=== PATIENT | female | born 1980 | race Caucasian/White ===

== ENCOUNTER 2017-03-05 15:31 | Outpatient (CLI) | payer MEDICAID | END 2017-03-05 15:32 | disposition home or self-care (01) | LOC: RT.S 15:31 | PROVIDERS: ATTEND Nurse Practitioner Family | DX: R07.89 Other chest pain (principal) | CPT/HCPCS: 93005 ==

== ENCOUNTER 2017-03-14 09:40 | Outpatient (CLI) | payer MEDICAID | END 2017-03-14 09:41 | disposition home or self-care (01) | DX: R07.89 Other chest pain (principal); Z83.49 Family history of other endocrine, nutritional and metabolic diseases; Z86.2 Personal history of diseases of the blood and blood-forming organs and certain disorders involving the immune mechanism ==

== ENCOUNTER 2017-04-26 09:51 | Outpatient (CLI) | payer MEDICAID ==
[2017-04-26 11:43] LABS: THYROID STIMULATING HORMONE 1.14 uIU/mL (0.34-5.60)
== END 2017-04-26 09:52 | disposition home or self-care (01) ==
LOC: LAB 09:51
PROVIDERS: ATTEND Obstetrics & Gynecology
DX: R10.9 Unspecified abdominal pain (principal)
CPT/HCPCS: 36415; 84439; 84443; 84481; 84703

== ENCOUNTER 2017-05-14 12:51 | Outpatient (CLI) | payer MEDICAID ==
--- NOTE | 2017-05-15 10:48 | Ultrasound Report ---
REVISED: THIS REPORT WAS ORIGINALLY SIGNED ON 05/15/2017 @ 2200. NO CHANGES MADE TO REPORT. ORIGINAL [facility] REQUISITION WAS REPRINTED ON 05/16/2017. TRANSABDOMINAL AND TRANSVAGINAL ULTRASOUND: 05/14/2017 CLINICAL HISTORY: Patient has abdominal pain. TECHNIQUE: Transabdominal pelvic ultrasound performed for global evaluation. Transvaginal pelvic ultrasound performed for detailed evaluation. Real-time scanning performed and static images obtained. FINDINGS: Uterus measures 18.5 x 3 x 4 cm. Within the central intrauterine cavity is noted an IUD. The position of the IUD appears normal on the present ultrasound exam including transvaginal ultrasound exam. Endometrial echo complex measures 4.6 mm. This is normal. A small amount of fluid is seen in the endocervical canal. Right ovary measures 3 x 2.6 x 3.9 cm. Within the right ovary is a benign cyst measuring 1.4 x 1.1 x 1.5 cm. Left ovary measures 1.8 x 1.7 x 1 cm. IMPRESSION: 1. NORMAL UTERUS. T-SHAPED IUD IS NOTED WITHIN THE CENTRAL INTRAUTERINE CAVITY IN NORMAL POSITION. 2. OVARIES APPEAR MILDLY ATROPHIC. RIGHT OVARY CONTAINS A SMALL PHYSIOLOGICAL FOLLICULAR CYST WITHIN IT MEASURING 1.4 X 1.1 X 1.5 CM. 3. NO SIGNIFICANT CHANGE IS NOTED ON PRESENT ULTRASOUND COMPARED TO PRECEDING EXAM DATED 05/12/2016. JOB #: [id number] EXT JOB #: [id number] [facility]
== END 2017-05-14 12:52 | disposition home or self-care (01) ==
LOC: DI 12:51
PROVIDERS: ATTEND Obstetrics & Gynecology
DX: N83.01 Follicular cyst of right ovary (principal); Z97.5 Presence of (intrauterine) contraceptive device; N83.312 Acquired atrophy of left ovary; N83.311 Acquired atrophy of right ovary
CPT/HCPCS: 76830; 76856

== ENCOUNTER 2019-04-17 18:44 | Outpatient (CLI) | payer MEDICAID ==
--- NOTE | 2019-04-20 04:54 | XRAY Report ---
Reason: NUMBNESS AND TINGLING IN RIGHT ARM,BACK PAIN,UPPER Procedure Date: 04/17/2019 Accession Number: [id number] / [id number] Procedure: XR - Thoracic Spine 2 View CPT Code: FULL RESULT: EXAM: CERVICAL AND THORACIC SPINE RADIOGRAPHY EXAM DATE: 04/17/2019 07:13 PM. CLINICAL HISTORY: Numbness and tingling in right arm, upper back pain. COMPARISONS: THORACIC SPINE 2 VIEW 04/17/2019 6:48 PM. TECHNIQUE: 3 views each of the cervical and thoracic spine. FINDINGS: Alignment: No acute malalignment. Mild reversal of the normal cervical lordosis may be due to muscle spasm and/or positioning factors. Bones: The cervical vertebral bodies and posterior elements are well-visualized from the skull base through C7-T1. No fractures or bone lesions. Disks: Normal. Disk heights are maintained. Facets: No degenerative disease. Soft Tissues: Normal. No prevertebral soft tissue swelling. The visualized lung apices are clear. IMPRESSION: Negative cervical and thoracic spine radiography. [facility]
--- NOTE | 2019-04-20 04:54 | XRAY Report ---
Reason: NUMBNESS AND TINGLING IN RIGHT ARM,BACK PAIN,UPPER Procedure Date: 04/17/2019 Accession Number: [id number] / [id number] Procedure: XR - Cervical Spine 2 View CPT Code: FULL RESULT: EXAM: CERVICAL AND THORACIC SPINE RADIOGRAPHY EXAM DATE: 04/17/2019 07:13 PM. CLINICAL HISTORY: Numbness and tingling in right arm, upper back pain. COMPARISONS: THORACIC SPINE 2 VIEW 04/17/2019 6:48 PM. TECHNIQUE: 3 views each of the cervical and thoracic spine. FINDINGS: Alignment: No acute malalignment. Mild reversal of the normal cervical lordosis may be due to muscle spasm and/or positioning factors. Bones: The cervical vertebral bodies and posterior elements are well-visualized from the skull base through C7-T1. No fractures or bone lesions. Disks: Normal. Disk heights are maintained. Facets: No degenerative disease. Soft Tissues: Normal. No prevertebral soft tissue swelling. The visualized lung apices are clear. IMPRESSION: Negative cervical and thoracic spine radiography. [facility]
== END 2019-04-17 18:45 | disposition home or self-care (01) ==
LOC: DI 18:44
PROVIDERS: ATTEND Nurse Practitioner
DX: M54.89 Other dorsalgia (principal); M79.601 Pain in right arm; R20.2 Paresthesia of skin
CPT/HCPCS: 72040; 72070

== ENCOUNTER 2020-05-20 08:21 | Outpatient (CLI) | payer MEDICAID ==
[2020-05-20 08:40] LABS: BASOPHILS # (AUTO) 0.1 10^3/uL (0.0-0.1); BASOPHILS % (AUTO) 0.7 %; EOSINOPHILS # (AUTO) 0.3 10^3/uL (0.0-0.7); EOSINOPHILS % (AUTO) 3.1 %; HGB - HEMOGLOBIN 14.4 g/dL (12.0-16.0); LYMPHOCYTES # (AUTO) 1.8 10^3/uL (1.5-3.5); LYMPHOCYTES % (AUTO) 20.2 %; MEAN CORPUSCULAR HEMOGLOBIN 31.9 pg (27.0-31.0); MEAN CORPUSCULAR HGB CONC 32.7 g/dL (32.0-36.0); MEAN CORPUSCULAR VOLUME 97.6 fL (81.0-99.0); MEAN PLATELET VOLUME 10.7 fL (7.9-10.8); MONOCYTES # (AUTO) 0.5 10^3/uL (0.0-1.0); MONOCYTES % (AUTO) 5.4 %; NEUTROPHILS # (AUTO) 6.2 10^3/uL (1.5-6.6); NEUTROPHILS % (AUTO) 70.3 %; PLT - PLATELET COUNT 213 10^3/uL (130-450); RED BLOOD COUNT 4.52 10^6/uL (4.20-5.40); RED CELL DISTRIBUTION WIDTH 12.7 % (12.0-15.0); WHITE BLOOD COUNT 8.8 x10^3/uL (4.8-10.8)
[2020-05-20 08:55] LABS: ALBUMIN/GLOBULIN RATIO 1.2 (1.0-2.2); ALKALINE PHOSPHATASE 66 IU/L (42-121); ALT ALANINE AMINOTRANSFERASE 33 IU/L (10-60); AST ASPARTATE AMINOTRANSFERASE 21 IU/L (10-42); BILIRUBIN,TOTAL 0.8 mg/dL (0.2-1.0); BUN - BLOOD UREA NITROGEN 15 mg/dL (6-20); CALCIUM 9.3 mg/dL (8.5-10.3); CARBON DIOXIDE - CO2 27 mmol/L (21-32); CHLORIDE 101 mmol/L (101-111); CHOL/HDL RATIO 4.9 (<4.4); CHOLESTEROL 220 mg/dL; CREATININE 0.9 mg/dL (0.4-1.0); GLUCOSE 126 mg/dL (70-100); HDL CHOLESTEROL 45 mg/dL; LDL CHOLESTEROL,CALCULATED 131 mg/dL; LDL/HDL RATIO 2.9 (<4.4); SODIUM 136 mmol/L (135-145); TOTAL PROTEIN 7.3 g/dL (6.7-8.2); VLDL CHOLESTEROL 44 mg/dL
== END 2020-05-20 08:22 | disposition home or self-care (01) ==
LOC: LAB 08:21
PROVIDERS: ATTEND Registered Nurse
DX: E66.01 Morbid (severe) obesity due to excess calories (principal); Z83.3 Family history of diabetes mellitus
CPT/HCPCS: 36415; 80053; 80061; 83721; 84443; 85025

== ENCOUNTER 2020-05-31 13:24 | Outpatient (CLI) | payer MEDICAID ==
--- NOTE | 2020-05-31 17:58 | XRAY Report ---
PROCEDURE: Ankle 3 View LT INDICATIONS: ANKLE INSTABILITY TECHNIQUE: 3 views of the ankle were acquired. COMPARISON: None FINDINGS: Bones: No fractures or dislocations. Ankle mortise is normally aligned. No suspicious bony lesions . Small plantar and dorsal calcaneal spurs. Soft tissues: No tibiotalar joint effusion. Achilles tendon appears normal. IMPRESSION: 1. Normal ankle joint. 2. Mild plantar and dorsal calcaneal spurring. Reviewed by: Kristin Oscar MD on 05/31/2020 4:57 PM [facility] Approved by: Kristin Oscar MD on 05/31/2020 4:57 PM [facility] Station ID: [id number]
== END 2020-05-31 13:25 | disposition home or self-care (01) ==
LOC: DI 13:24
PROVIDERS: ATTEND Physician Assistant
DX: M77.32 Calcaneal spur, left foot (principal); M77.52 Other enthesopathy of left foot and ankle

== ENCOUNTER 2020-07-06 10:21 | Outpatient (CLI) | payer MEDICAID ==
[2020-07-06 11:07] VITALS: BP 119/78
--- NOTE | 2020-07-06 11:07 | SLEEP CARE CONSULTATION ---
Information from patient questionnaire entered by Debo Monzon. I have reviewed and concur with the information entered by Debo Monzon. This document represents the service I personally performed and the decisions made by me, Halina Matson ARNP. History of Present Illness Service Date and Time: 07/06/2020 1021 Reason for Visit: New patient Chief Complaint: reports: Insomnia (can't stay asleep, waking up in pain (nerve pain)), Unrefreshed sleep, Snoring, Excessive daytime sleepiness, Observed pauses in breathing (not seen by ), Fatigue, Frequent awakenings at night Date of Onset: 20 YEARS Usual bedtime: 2200 Time it takes to fall asleep: 1 hour Snores at night: Yes Observed to quit breathing while asleep: No Sleeps alone due to snoring: No Number of times waking at night: 6-7 Reasons for waking at night: reports: Pain, Other (numbness in arms). 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 Her current complaints are insomnia, unrefreshed sleep, snoring, observed pauses in breathing during sleep, fatigue, excessive daytime s leepiness and frequent night awakenings. She has a history of pre-diabetes with hypertension, asthma and anxiety. She states her falls asleep quickly and sleep hard, so she was unable to get information about pauses in breathing and snoring but she is pretty sure she snores. She states she used to stay up late and then sleep in but since becoming a mother and other life changes she now takes about an hour to go to sleep and then has trouble staying asleep due to frequent awakenings. She wakes up due to her arms being numb and having to turn and because of pain which she believes comes from her back and is more like nerve pain. She is not sure if her tiredness and frequent awakening is due to sleep apnea but due to her unrefreshed sleep and daytime fatigue she is here for evaluation. - Parasomnia Symptoms Ever been unable to move upon waking from sleep: No Walks in sleep: No Talks in sleep: No Ever acted out dreams in sleep: Yes Ever felt weak in the knees when startled or emotional: No Bothered by creepy, crawly, restless sensations in legs: Yes (not every night) Problems with memory or concentration: No Subjective Initial [place] Sleepiness Scale score: 6 (in 2020) Past Medical History Past Medical History: reports: Hypertension, Claustrophobia, Diabetes, Anxiety, Asthma, Other (nerve issues, thinks more of back related). 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 Patient is Single and lives in [place]. Have you smoked in the past 12 months: Yes Cigarettes per day (20/pack): 20 Years of smokin Smoking Pack Years: 25.0 Alcohol use: Yes Alcohol amount and frequency: 2-3 drinks, Saturday, once a week Caffeine use: Yes Caffeine amount and frequency: 1 cup coffee daily in morning Family History Family history of sleep disordered breathing: No Allergies and Home Medications Drug allergies reviewed: Yes (NKDA) Home medication list reviewed: Yes Allergy and home medication list: Metformin gabapentin atorvastatin lisinopril Aller-uday Ibuprofen Pro Air, prn Review of Systems Weight gain over past 5 years: 30 Weight loss over past 5 years: 7 Cardiovascular: reports: high blood pressure, leg or foot swelling. denies: palpitations, chest pain, irregular heart rate or pulse Respiratory: reports: shortness of breath, wheeze, chronic cough Gastrointestinal: reports: heartburn (occasional). denies: difficulty swallowing Neurological: reports: headaches. denies: seizure, head trauma, speech dysfunction, gait or balance problems, fainting or unconsciousness Psychiatric: reports: anxiety, claustrophobia. denies: depression, mood disorder Ear/Nose/Throat: reports: nasal congestion (allergies), sinus problems, dry mouth/throat (in mornings regularly), hoarseness, wisdom teeth removed. denies: nose bleeds, injury to nose, tonsillectomy Endocrine: reports: sluggishness, too hot or cold, unexplained weakness. denies: thyroid disease Musculoskeletal: reports: joint pain, back pain, joint swelling, muscle pain or cramping, mobility problems Immunologic: reports: sneezing, itching, allergies to food or environment Physical Exam Blood Pressure: 119/78 Cuff size: large Heart Rate: 54 O2 Saturation: 98 Height: 5 ft 7 in Weight: 325 lb Body Mass Index: 50.8 BMI Classification: Morbidly Obese Neck circumference: 17.5 (inches) HEENT: No craniofacial malformation Nostrils: patent to airflow Turbinates: swollen Septum: midline Mouth and throat: narrow oropharynx Soft palate: normal Hard palate: normal Uvula: normal Uvula visualization: 25% Mallampati Class III Tongue: enlarged in size with teeth coburn on lateral edges Tonsils: 2+ Chin and jaw: normal size and position Neck: normal w/o lymphadenopathy or thyromegaly Heart: regular rate and rhythm Lungs: clear bilaterally Impression and Plan 1. Suspected Obstructive Sleep Apnea-Hypopnea Syndrome, as suggested by a history of loud and irregular snoring, morning headache, frequent awakening during the night, unrefreshed sleep, and excessive daytime sleepiness. I reviewed with patient that a narrow oropharynx and obesity are common predisposing factors for obstructive sleep apnea-hypopnea syndrome. She has a history of hypertension, prediabetes, asthma and anxiety. I recommend proceeding to polysomnography to confirm the diagnosis and to assess severity. If the patient has significant sleep disordered breathing, a manual CPAP titration study will also be performed to find the optimal treatment pressure. I informed the patient of what the sleep studies involve and after some discussion, obtained agreement to proceed. The pathophysiology of obstructive sleep apnea- hypopnea syndrome was discussed with the patient and health risks of cardiovascular and cerebrovascular disease if not treated. AASM brochure for obstructive sleep apnea-hypopnea syndrome given and reviewed. Risks of drowsy driving discussed in detail and patient advised to avoid long distance driving and to assembler for puller over machine at the first sign of drowsiness. Patient agreed to plan. * Schedule polysomnography +- manual CPAP titration study. * Avoid long distance driving or driving when feeling sleepy. * Avoid alcohol, sedative and muscle relaxant around bedtime. * Attempt to lose weight. * Review instructions provided by trained office staff on how to prepare for the sleep study. * Return for follow-up after sleep study completed. Visit Type: In Office Time Spent with Patient (minutes): 32 Provider Statement: I spent 100% of the Face to Face Visit with the patient with greater than 50% spent counseling the patient and coordination of care.
== END 2020-07-06 10:22 | disposition home or self-care (01) ==
LOC: SC 10:21
PROVIDERS: ATTEND Nurse Practitioner Family
DX: G47.10 Hypersomnia, unspecified (principal); R53.83 Other fatigue; G47.8 Other sleep disorders; R06.83 Snoring; E11.9 Type 2 diabetes mellitus without complications; I10 Essential (primary) hypertension; E66.01 Morbid (severe) obesity due to excess calories; Z68.43 Body mass index [BMI] 50.0-59.9, adult; F17.210 Nicotine dependence, cigarettes, uncomplicated; Z79.84 Long term (current) use of oral hypoglycemic drugs
CPT/HCPCS: 99204; 99212

== ENCOUNTER 2020-08-05 09:30 | Outpatient (CLI) | payer MEDICAID | END 2020-08-05 23:59 | disposition home or self-care (01) | LOC: COV 09:30 | PROVIDERS: ATTEND Family Medicine | DX: R05 Cough (principal); R53.83 Other fatigue; J02.9 Acute pharyngitis, unspecified; R09.81 Nasal congestion; Z20.828 Contact with and (suspected) exposure to other viral communicable diseases ==

== ENCOUNTER 2021-05-10 08:00 | Outpatient (CLI) | payer MEDICAID ==
[2021-05-10 20:53] LABS: BACTERIAL VAGINOSIS DNA NEGATIVE (NEGATIVE); CANDIDA GLABRATA DNA NEGATIVE (NEGATIVE); CANDIDA GROUP DNA POSITIVE (NEGATIVE); CANDIDA KRUSEI DNA NEGATIVE (NEGATIVE); TRICHOMONAS VAGINALIS DNA NEGATIVE (NEGATIVE)
== END 2021-05-10 23:59 | disposition home or self-care (01) ==
LOC: LAB.R 08:00
PROVIDERS: ATTEND Obstetrics & Gynecology
DX: N76.0 Acute vaginitis (principal)
CPT/HCPCS: 87661; 87801

== ENCOUNTER 2021-08-21 08:34 | Outpatient (CLI) | payer MEDICAID ==
[2021-08-21 10:10] LABS: BASOPHILS % (AUTO) 0.3 %; EOSINOPHILS # (AUTO) 0.4 10^3/uL (0.0-0.7); EOSINOPHILS % (AUTO) 3.9 %; HCT - HEMATOCRIT 43.7 % (37.0-47.0); HGB - HEMOGLOBIN 14.1 g/dL (12.0-16.0); LYMPHOCYTES # (AUTO) 1.9 10^3/uL (1.5-3.5); LYMPHOCYTES % (AUTO) 20.8 %; MEAN CORPUSCULAR HEMOGLOBIN 31.6 pg (27.0-31.0); MEAN CORPUSCULAR HGB CONC 32.3 g/dL (32.0-36.0); MEAN PLATELET VOLUME 10.1 fL (7.9-10.8); MONOCYTES # (AUTO) 0.5 10^3/uL (0.0-1.0); MONOCYTES % (AUTO) 5.3 %; NEUTROPHILS # (AUTO) 6.2 10^3/uL (1.5-6.6); NEUTROPHILS % (AUTO) 69.4 %; PLT - PLATELET COUNT 225 10^3/uL (130-450); RED BLOOD COUNT 4.46 10^6/uL (4.20-5.40); RED CELL DISTRIBUTION WIDTH 12.8 % (12.0-15.0); WHITE BLOOD COUNT 8.9 x10^3/uL (4.8-10.8)
[2021-08-21 10:31] LABS: ALBUMIN 4.3 g/dL (3.2-5.5); ALBUMIN/GLOBULIN RATIO 1.2 (1.0-2.2); ALKALINE PHOSPHATASE 73 IU/L (42-121); ALT ALANINE AMINOTRANSFERASE 28 IU/L (10-60); AST ASPARTATE AMINOTRANSFERASE 18 IU/L (10-42); BILIRUBIN,TOTAL 0.8 mg/dL (0.2-1.0); BUN - BLOOD UREA NITROGEN 14 mg/dL (6-20); CALCIUM 9.6 mg/dL (8.5-10.3); CARBON DIOXIDE - CO2 29 mmol/L (21-32); CHLORIDE 104 mmol/L (101-111); CHOL/HDL RATIO 4.1 (<4.4); CHOLESTEROL 169 mg/dL; CREATININE 0.8 mg/dL (0.4-1.0); GFR - MDRD 80 (>89); GLUCOSE 95 mg/dL (70-100); HDL CHOLESTEROL 41 mg/dL; LDL CHOLESTEROL,CALCULATED 83 mg/dL; POTASSIUM 4.3 mmol/L (3.5-5.0); SODIUM 143 mmol/L (135-145); TOTAL PROTEIN 7.8 g/dL (6.7-8.2); TRIGLYCERIDES 224 mg/dL; VLDL CHOLESTEROL 45 mg/dL
[2021-08-21 10:41] LABS: THYROID STIMULATING HORMONE 1.29 uIU/mL (0.34-5.60)
[2021-08-21 13:35] LABS: ESTIMATED AVERAGE GLUCOSE 117 mg/dL (70-100); HEMOGLOBIN A1c% 5.7 % (4.27-6.07)
== END 2021-08-21 08:35 | disposition home or self-care (01) ==
LOC: LAB 08:34
PROVIDERS: ATTEND Registered Nurse
DX: E11.9 Type 2 diabetes mellitus without complications (principal); E78.5 Hyperlipidemia, unspecified; R53.82 Chronic fatigue, unspecified
CPT/HCPCS: 36415; 80053; 80061; 83036; 83721; 84443; 85025

== ENCOUNTER 2022-08-30 12:04 | Outpatient (CLI) | payer MEDICAID ==
--- NOTE | 2022-08-30 15:34 | XRAY Report ---
PROCEDURE: Cervical Spine 2 View INDICATIONS: NUMBNESS AND TINGLING IN RIGHT ARM TECHNIQUE: 3 view(s) of the cervical spine were acquired. COMPARISON: X-ray cervical spine 04/17/2019 FINDINGS: Bones: No fractures or dislocations to the C7-T1 level. The lateral masses of C1 appear intact on t he odontoid view. No suspicious bony lesions. There is overall reversal of normal cervical curvatur e with apex at C5-6. This is unchanged compared to prior exam. Soft tissues: No prevertebral soft tissue swelling. IMPRESSION: Unchanged appearance of reversal cervical curvature. Reviewed by: Dahlia Lopez MD on 08/30/2022 3:32 PM PDT Approved by: Dahlia Lopez MD on 08/30/2022 3:32 PM PDT Station ID: [id number]
--- NOTE | 2022-08-30 15:35 | XRAY Report ---
PROCEDURE: Lumbar Spine 2 View INDICATIONS: NUMBNESS IN FOOT TECHNIQUE: 3 views of the lumbar spine were acquired. COMPARISON: None. FINDINGS: Bones: 5 [id number] vertebrae are present. There is trace retrolisthesis of L2 on L3, L3 on L4 . Minimal disc and foraminal narrowing are noted at L5-S1. There is questionable appearance of pars d efect.. No vertebral body compression fractures. No suspicious bony lesions. Soft tissues: Overlying bowel gas pattern is normal. No suspicious soft tissue calcifications. IMPRESSION: Disc and foraminal narrowing noted L5-S1 with questionable appearance of pars defect at L5 poorly vis ualized secondary to overlying soft tissues. As clinically indicated, further evaluation with oblique views may be obtained. Reviewed by: Dahlia Lopez MD on 08/30/2022 3:34 PM PDT Approved by: Dahlia Lopez MD on 08/30/2022 3:34 PM PDT Station ID: [id number]
== END 2022-08-30 12:05 | disposition home or self-care (01) ==
LOC: DI.S 12:04
PROVIDERS: ATTEND Registered Nurse
DX: M47.816 Spondylosis without myelopathy or radiculopathy, lumbar region (principal)

== ENCOUNTER 2022-09-21 13:26 | Outpatient (CLI) | payer MEDICAID | END 2022-09-21 13:27 | disposition home or self-care (01) | LOC: DI 13:26 | PROVIDERS: ATTEND Registered Nurse | DX: Z53.9 Procedure and treatment not carried out, unspecified reason (principal) ==

== ENCOUNTER 2022-10-08 12:31 | Outpatient (CLI) | payer MEDICAID ==
--- NOTE | 2022-10-08 13:56 | XRAY Report ---
PROCEDURE: Lumbar Spine 2 View INDICATIONS: BACK PX TECHNIQUE: 2 oblique views of the lumbar spine were acquired. COMPARISON: None. FINDINGS: Bones: 5 [id number] vertebrae are present. There is normal bony alignment. No vertebral body compression fractures. No suspicious bony lesions. Soft tissues: Overlying bowel gas pattern is normal. No suspicious soft tissue calcifications. IMPRESSION: Oblique views of the lumbar spine demonstrate no definite acute fracture. No osseous les ion. If symptoms and/or clinical suspicion for pathology continue, further assessment with repeat germán in films, or advanced imaging (e.g., CT, MRI, or bone scan) is recommended for further assessment. Reviewed by: Edilma Kramer MD on 10/08/2022 12:54 PM [facility] Approved by: Edilma Kramer MD on 10/08/2022 12:54 PM [facility] Station ID: [id number]
== END 2022-10-08 12:32 | disposition home or self-care (01) ==
LOC: DI 12:31
PROVIDERS: ATTEND Registered Nurse
DX: M54.50 Low back pain, unspecified (principal); G89.29 Other chronic pain

== ENCOUNTER 2023-03-26 08:43 | Outpatient (CLI) | payer MEDICAID ==
[2023-03-26 09:13] LABS: CREATININE,URINE 142.3 mg/dL; MICROALBUM/CREATININE RATIO,UR 19.7 ug/mg (<30.0); MICROALBUMIN,URINE 2.8 mg/dL (0-300.0)
[2023-03-26 09:14] LABS: CHOL/HDL RATIO 4.3 (<4.4); CHOLESTEROL 183 mg/dL; HDL CHOLESTEROL 43 mg/dL; LDL CHOLESTEROL,CALCULATED 93 mg/dL; LDL/HDL RATIO 2.2 (<4.4); TRIGLYCERIDES 237 mg/dL; VLDL CHOLESTEROL 47 mg/dL
[2023-03-26 09:27] LABS: THYROID STIMULATING HORMONE 1.52 uIU/mL (0.34-5.60)
[2023-03-26 12:07] LABS: ESTIMATED AVERAGE GLUCOSE 126 mg/dL (70-100)
== END 2023-03-26 08:44 | disposition home or self-care (01) ==
LOC: LAB 08:43
PROVIDERS: ATTEND Registered Nurse
DX: E78.5 Hyperlipidemia, unspecified (principal); E11.9 Type 2 diabetes mellitus without complications; Z13.29 Encounter for screening for other suspected endocrine disorder
CPT/HCPCS: 36415; 80061; 82043; 82570; 83036; 83721; 84443

== ENCOUNTER 2023-07-22 08:00 | Outpatient (CLI) | payer MEDICAID ==
--- NOTE | 2023-07-22 13:11 | XRAY Report ---
PROCEDURE: Wrist 3 View RT INDICATIONS: RIGHT WRIST CYST TECHNIQUE: 3 views of the wrist were acquired. COMPARISON: None. FINDINGS: Bones: No fractures or dislocations. No suspicious bony lesions. Soft tissues: Soft tissue density projecting deep to the BB along the radial aspect of the wrist. IMPRESSION: Soft tissue density projecting deep to the BB along the radial aspect of the wrist. Consider ultrasou nd for further characterization. Reviewed by: Fei Esparza on 07/22/2023 1:10 PM PDT Approved by: Fei Esparza on 07/22/2023 1:10 PM PDT Station ID: [id number]
== END 2023-07-22 23:59 | disposition home or self-care (01) ==
LOC: DI.WOS 08:00
PROVIDERS: ATTEND Physician Assistant Surgical
DX: M67.431 Ganglion, right wrist (principal); R93.6 Abnormal findings on diagnostic imaging of limbs; R93.89 Abnormal findings on diagnostic imaging of other specified body structures

== ENCOUNTER 2023-08-09 14:02 | Outpatient (CLI) | payer MEDICAID ==
--- NOTE | 2023-08-09 14:40 | Sleep Patient Instructions ---
Sleep Center Visit Summary - Patient Visit Information Reason for Visit: Initial consult for evaluation of sleep disordered breathing and other sleep issues. - Patient Instructions Instructions Attached: Sleep Study Home Monitor Additional Instructions: You will be completing a sleep study, either an in-lab polysomnography (PSG) or home sleep study (HST). You will follow-up in the sleep care office after the sleep study is completed to hear the results and talk about therapy, if needed. You will be called by our office staff to schedule this appointment, but you may contact us with any questions. - Clinic Information Contact: [facility] [address] [place] [email or web address] T: [phone]
--- NOTE | 2023-08-09 14:52 | SLEEP CARE CONSULTATION ---
Information from patient questionnaire entered by Anisa Guthrie. I have reviewed and concur with the information entered by Anisa Guthrie. This document represents the service I personally performed and the decisions made by me, Halina Matson ARNP. History of Present Illness Service Date and Time: 08/09/2023 1402 Reason for Visit: New patient Chief Complaint: reports: Insomnia, Excessive daytime sleepiness, Fatigue, Frequent awakenings at night Date of Onset: MANY YRS Usual bedtime: 1030PM Time it takes to fall asleep: 1-2HRS Snores at night: Yes Observed to quit breathing while asleep: No Sleeps alone due to snoring: No Number of times waking at night: 3-4 Reasons for waking at night: reports: Pain, Other (UNKNOWN). 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 Her current complaints are excessive daytime sleepiness, fatigue, frequent night awakenings and insomnia. She had a previous diagnosis about 2 years ago at [facility]. She found her mask off her face every night. She did not remember doing this. She states she does not know that the machine was working because it did not seem to be recording any events that she was having. She states the night of her sleep study she could not fall asleep until about 2 hours prior to the end of the study. She states she only had light sleep and the whole night was "horrible ". She was started on a CPAP but has not been able to consistently use it in the last 2 years. She returns for re-evaluation. She is also looking at getting bariatric surgery for weight loss. - Parasomnia Symptoms Ever been unable to move upon waking from sleep: No Walks in sleep: No Talks in sleep: Yes Ever acted out dreams in sleep: No Ever felt weak in the knees when startled or emotional: No Bothered by creepy, crawly, restless sensations in legs: Yes (leg movements at night) Problems with memory or concentration: No CPAP Compliance Data Compliance data discussion: She has a ResVent IBreeze CPAP. We do not have access to be able to get her information including her pressure settings or compliance. She has not used for at least two months. Subjective Missed days of use due to: reports: mask issues (taking mask off at night), other (unsure therapy is working) Initial [place] Sleepiness Scale score: 7 (06/25/23) Past Medical History Past Medical History: reports: Hypertension, Diabetes, Asthma (exercise induced) Social History The patient's occupation is a [employer]. Patient is Single and lives in [place]. Have you smoked in the past 12 months: No Cigarettes per day (20/pack): 20 Years of smokin Quit date: 2021 Smoking Pack Years: 21.0 Alcohol use: Yes Alcohol amount and frequency: 3 MIXED DRINKS ONCE A WEEK OR JUST THE WEEKEND Caffeine use: Yes Caffeine amount and frequency: 2 CUPS DRIP COFFEE EVERY MORNING Family History Family history of sleep disordered breathing: Yes Family Hx Sleep Apnea: Sibling: Snoring, Sleep apnea - Treated Allergies and Home Medications Known drug allergies: No Drug allergies reviewed: Yes Home medication list reviewed: Yes Allergy and home medication list: Allergies No Known Drug Allergies Allergy (Verified 08/08/23 12:57) Review of Systems Weight gain over past 5 years: 20 Cardiovascular: reports: high blood pressure Respiratory: denies: shortness of breath Gastrointestinal: denies: heartburn Neurological: reports: headaches Psychiatric: reports: Attention Deficit Hyperactivity Ear/Nose/Throat: reports: sinus problems, wisdom teeth removed. denies: tonsillectomy Endocrine: reports: sluggishness, unexplained weakness Musculoskeletal: reports: joint pain, neck pain, back pain, muscle pain or cramping Immunologic: reports: sneezing, itching Physical Exam Vital signs obtained and entered by: ANISA Ryder MA Blood Pressure: 123/75 (LEFT) Cuff size: wrist Heart Rate: 82 O2 Saturation: 95 Height: 5 ft 7 in Weight: 348 lb 6.4 oz Body Mass Index: 54.6 BMI Classification: Morbidly Obese Neck circumference: 18.5 Impression and Plan 1. Suspected Obstructive Sleep Apnea-Hypopnea Syndrome, as previously diagnosed and as suggested by a history of loud and irregular snoring, frequent awakening during the night, unrefreshed sleep, and excessive daytime sleepiness. Narrow oropharynx and obesity are common predisposing factors for obstructive sleep apnea-hypopnea syndrome. I recommend proceeding to polysomnography to confirm the diagnosis and to assess severity. If the patient has significant sleep disordered breathing, a manual CPAP titration study will also be performed to find the optimal treatment pressure. I informed the patient of what the sleep studies involve and after some discussion, obtained agreement to proceed. The pathophysiology of obstructive sleep apnea-hypopnea syndrome was discussed with the patient and health risks of cardiovascular and cerebrovascular disease if not treated. Risks of drowsy driving discussed in detail and patient advised to avoid long distance driving and to stick puller at the first sign of drowsiness. Patient agreed to plan. * Schedule polysomnography. * Avoid long distance driving or driving when feeling sleepy. * Avoid alcohol, sedative and muscle relaxant around bedtime. * Attempt to lose weight. * Review instructions provided by trained office staff on how to prepare for the sleep study. * Return for follow-up after sleep study completed. Counseling Topics: Weight loss health impact Plan: PSG Visit Type: In Office Time Spent with Patient (minutes): 32 Provider Statement: I spent 100% of the Face to Face Visit with the patient with greater than 50% spent counseling the patient and coordination of care.
[2023-08-09 14:53] VITALS: BP 123/75; O2SAT 95
== END 2023-08-09 14:03 | disposition home or self-care (01) ==
LOC: SC 14:02
PROVIDERS: ATTEND Nurse Practitioner Family
DX: G47.33 Obstructive sleep apnea (adult) (pediatric) (principal); E66.01 Morbid (severe) obesity due to excess calories; Z68.43 Body mass index [BMI] 50.0-59.9, adult
CPT/HCPCS: 99203; 99212

== ENCOUNTER 2023-08-21 09:57 | Outpatient (CLI) | payer MEDICAID | END 2023-08-21 09:58 | disposition home or self-care (01) | LOC: SC 09:57 | PROVIDERS: ATTEND Nurse Practitioner Family | DX: G47.33 Obstructive sleep apnea (adult) (pediatric) (principal); R09.02 Hypoxemia; E66.01 Morbid (severe) obesity due to excess calories; Z68.43 Body mass index [BMI] 50.0-59.9, adult | CPT/HCPCS: 95806 ==

== ENCOUNTER 2023-09-10 14:19 | Outpatient (CLI) | payer MEDICAID ==
--- NOTE | 2023-09-10 14:14 | SLEEP CARE CONSULTATION ---
Information from patient questionnaire entered by Priya Guthrie. I have reviewed and concur with the information entered by Priya Guthrie. This document represents the service I personally performed and the decisions made by , Halina Matson ARNP. History of Present Illness Service Date and Time: 09/10/2023 1340 Initial [place] Sleepiness Scale score: 7 (06/25/23) Current [place] Sleepiness Scale score: 7 (09/10/23) Additional HPI information: MASTER WILLAMS returns via video appointment for follow up and results of the recently performed home sleep study. The sleep study showed mild obstructive sleep apnea with an average AHI of 5.6 and zari oxygen saturation of 83%. I explained the pathophysiology behind obstructive sleep apnea. We then spent quite a bit of time discussing different treatment options. For mild obstructive sleep apnea, surgery and oral appliance are alternatives to nasal CPAP therapy but in moderate or severe cases, nasal CPAP is the most effective and reliable treatment. I reviewed the impact of weight changes on sleep apnea and strongly recommended losing weight. After some discussion, the patient opted to continue with the nasal CPAP therapy. She has a CPAP at home that she received a couple years ago. Patient was cautioned about risks of drowsy driving until sleepiness symptoms resolve. Sleep Study - Results Type of Sleep Study: Home sleep study (COMPLETED 08/21/23) Prior sleep studies: Yes Year and Where: [facility] 2yrs ago Polysomnography/Home Sleep Study results: Physician Impression: The quality of the study is good. The length of the study is adequate (> 240 minutes). Please also see the tabulated and graphic data. 1. Obstructive Sleep Apnea-Hypopnea (ICD-10 G47.33), mild, with an AHI of 5.6/hr and zari SaO2 of 83%. During the study, the patient had 16 apneas (14 obstructive, 0 central, 2 mixed) and 28 hypopneas. The longest episode lasted 72.5 seconds. The respiratory events occurred independently of body position (supine AHI was 6.4 and non-supine, 5.29). 2. Hypoxemia (ICD-10 R09.02), mild, with the lowest oxygen saturation of 83 % a nd 338.2 minutes with SaO2 under 90%. Baseline oxygen saturation was low (Average oxygen saturation was 89%). Allergies and Home Medications Known drug allergies: No Drug allergies reviewed: Yes Home medication list reviewed: Yes (no changes) Allergy and home medication list: Allergies No Known Drug Allergies Allergy (Verified 09/09/23 10:11) Review of Systems Review of systems same as previous: Yes (NO CHANGE) Physical Exam Vital signs obtained and entered by: PRIYA Ryder MA Height: 5 ft 7 in (PER PT) Weight: 343 lb (PER PT) Body Mass Index: 53.7 BMI Classification: Morbidly Obese Impression and Plan 1. Obstructive Sleep Apnea-Hypopnea Syndrome, mild, with lowest oxygen saturation of 83%. Obviously this is the cause of the patients symptoms of unrefreshed sleep, and excessive daytime sleepiness. Positive pressure therapy could benefit hypertension and diabetes. As mentioned above, the patient will be continued on nasal autoCPAP therapy but her pressure is unknown at this time. She will bring with her at her next appointment so we can obtain data. Compliance guidelines also reviewed. 2. Hypoxemia, mild, with a zari oxygen saturation of 83% and 338.2 minutes spent under 90%. The baseline oxygen saturation was low normal with an average oxygen saturation of 89%. 3. Obesity, unspecified. Currently patients BMI is 53.7. She is preparing for bariatric surgery Obesity increases the risk of apnea, CPAP pressure require ments and overall health risks especially cardiovascular and diabetes. Thus patient is advised to lose weight. * Nasal auto CPAP therapy, unknown pressure * Attempt to lose weight. * Avoid alcohol consumption near bedtime. * Avoid supine sleep until using CPAP. * The patient is again cautioned about driving until sleepiness completely resolves. * Return in 1-2 months after CPAP obtained. I will assess response to therapy and compliance at that time. Follow up with Sleep Care in: 1-2 months Visit Type: Telehealth Video Video Type: Doxbarbara Patient Location: Home Location of Provider: Office Patient agrees and consents to this telehealth visit type: Yes Patient agrees to have their insurance billed: Yes Time Spent with Patient (minutes): 12 Provider Statement: I spent 100% of the Telehealth Video Call with the patient with greater than 50% spent counseling the patient and coordination of care.
== END 2023-09-10 14:20 | disposition home or self-care (01) ==
LOC: SC 14:19
PROVIDERS: ATTEND Nurse Practitioner Family
DX: G47.33 Obstructive sleep apnea (adult) (pediatric) (principal); R09.02 Hypoxemia; E66.01 Morbid (severe) obesity due to excess calories; Z68.43 Body mass index [BMI] 50.0-59.9, adult

== ENCOUNTER 2023-09-17 10:00 | Outpatient (CLI) | payer MEDICAID | END 2023-09-17 10:01 | disposition home or self-care (01) | LOC: NS 10:00 | PROVIDERS: ATTEND Registered Nurse | DX: Z71.3 Dietary counseling and surveillance (principal); E66.01 Morbid (severe) obesity due to excess calories; Z68.43 Body mass index [BMI] 50.0-59.9, adult | CPT/HCPCS: 97802 ==

== ENCOUNTER 2023-09-29 09:17 | Outpatient (CLI) | payer MEDICAID ==
[2023-09-29 09:46] LABS: BASOPHILS # (AUTO) 0.1 10^3/uL (0.0-0.1); BASOPHILS % (AUTO) 0.7 %; EOSINOPHILS # (AUTO) 0.2 10^3/uL (0.0-0.7); EOSINOPHILS % (AUTO) 3.5 %; HCT - HEMATOCRIT 42.1 % (37.0-47.0); HGB - HEMOGLOBIN 13.4 g/dL (12.0-16.0); LYMPHOCYTES # (AUTO) 1.5 10^3/uL (1.5-3.5); LYMPHOCYTES % (AUTO) 21.6 %; MEAN CORPUSCULAR HEMOGLOBIN 30.5 pg (27.0-31.0); MEAN CORPUSCULAR HGB CONC 31.8 g/dL (32.0-36.0); MEAN CORPUSCULAR VOLUME 95.9 fL (81.0-99.0); MEAN PLATELET VOLUME 9.8 fL (7.9-10.8); MONOCYTES # (AUTO) 0.5 10^3/uL (0.0-1.0); MONOCYTES % (AUTO) 6.6 %; NEUTROPHILS # (AUTO) 4.5 10^3/uL (1.5-6.6); NEUTROPHILS % (AUTO) 67.2 %; PLT - PLATELET COUNT 221 10^3/uL (130-450); RED BLOOD COUNT 4.39 10^6/uL (4.20-5.40); RED CELL DISTRIBUTION WIDTH 14.1 % (12.0-15.0); WHITE BLOOD COUNT 6.8 x10^3/uL (4.8-10.8)
[2023-09-29 10:22] LABS: FERRITIN 128.7 ng/mL (11.0-306.8)
== END 2023-09-29 09:18 | disposition home or self-care (01) ==
LOC: LAB 09:17
PROVIDERS: ATTEND Registered Nurse
DX: E63.9 Nutritional deficiency, unspecified (principal); R53.82 Chronic fatigue, unspecified
CPT/HCPCS: 36415; 82306; 82607; 82652; 82728; 82746; 83540; 84466; 85025

== ENCOUNTER 2023-10-04 10:52 | Outpatient (CLI) | payer MEDICAID | END 2023-10-04 10:53 | disposition home or self-care (01) | LOC: NS 10:52 | PROVIDERS: ATTEND Registered Nurse | DX: Z71.3 Dietary counseling and surveillance (principal); E66.01 Morbid (severe) obesity due to excess calories | CPT/HCPCS: 97803 ==

== ENCOUNTER 2023-11-01 11:22 | Outpatient (CLI) | payer MEDICAID | END 2023-11-01 11:23 | disposition home or self-care (01) | LOC: NS 11:22 | PROVIDERS: ATTEND Registered Nurse | DX: Z71.3 Dietary counseling and surveillance (principal); E66.01 Morbid (severe) obesity due to excess calories; Z68.43 Body mass index [BMI] 50.0-59.9, adult; Z71.89 Other specified counseling | CPT/HCPCS: 97803 ==

== ENCOUNTER 2023-11-15 10:44 | Outpatient (CLI) | payer MEDICAID | END 2023-11-15 10:45 | disposition home or self-care (01) | LOC: NS 10:44 | PROVIDERS: ATTEND Registered Nurse | DX: Z71.3 Dietary counseling and surveillance (principal); E66.01 Morbid (severe) obesity due to excess calories; Z68.43 Body mass index [BMI] 50.0-59.9, adult | CPT/HCPCS: 97803 ==

== ENCOUNTER 2023-11-29 10:26 | Outpatient (CLI) | payer MEDICAID | END 2023-11-29 10:27 | disposition home or self-care (01) | LOC: NS 10:26 | PROVIDERS: ATTEND Registered Nurse | DX: Z71.3 Dietary counseling and surveillance (principal); E66.01 Morbid (severe) obesity due to excess calories; Z68.43 Body mass index [BMI] 50.0-59.9, adult | CPT/HCPCS: 97803 ==

== ENCOUNTER 2023-12-17 10:37 | Outpatient (CLI) | payer MEDICAID ==
--- NOTE | 2023-12-17 11:22 | Sleep Patient Instructions ---
Sleep Center Visit Summary - Patient Visit Information Reason for Visit: 2-month follow-up - Patient Instructions Additional Instructions: You were here for follow up of CPAP therapy. You will be continued on CPAP therapy with pressure at 5-15 cmH2O. You should follow up with sleep care in 1-2 months. You may contact us sooner for any questions or concerns. - Clinic Information Contact: [facility] [address] [place] [id number] [email or web address] T: [phone]
--- NOTE | 2023-12-17 11:27 | SLEEP CARE CONSULTATION ---
Information from patient questionnaire entered by Priya Guthrie. I have reviewed and concur with the information entered by Priya Guthrie. This document represents the service I personally performed and the decisions made by me, Halina Matson ARNP. 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 Sleep Study - Results Prior sleep studies: Yes Year and Where: [facility] 2yrs ago CPAP Compliance Data - Data Reviewed with Patient Average duration of nightly device use: 4 hours Compliance rate %: 20 (04/26 with 4 hrs or more; /30 days used) Current pressure setting (cmH2O): 5-15 Average residual AHI: 2.4 Average large leak: 4.5 L/min Compliance data discussion: We do not yet have access to her iBreeze online. We will reach out to her DME, [facility], to try to get access. Subjective Missed days of use due to: reports: mask issues (taking mask off without realizing when sleeping), illness Patient concerns: reports: mask discomfort (loose mask because needs replacement). denies: aerophagia, air blowing in eyes, mask leak noise, condensation in mask/hose, nasal congestion, dry mouth, nose, throat, epistaxis Observed to snore while using device: No Current pressure setting perceived as: comfortable On therapy, patient: reports: sleeping better, being more awake and alert during the day, more rested overall. denies: drowsiness while driving Initial [place] Sleepiness Scale score: 7 (06/25/23) Current [place] Sleepiness Scale score: 3 Allergies and Home Medications Known drug allergies: No Drug allergies reviewed: Yes Home medication list reviewed: Yes (no changes) Allergy and home medication list: Allergies No Known Drug Allergies Allergy (Verified 12/12/23 16:59) Review of Systems Review of systems same as previous: Yes (no changes) Physical Exam Vital signs obtained and entered by: HALINA DURAN Blood Pressure: 114/72 Cuff size: long (left arm) Heart Rate: 69 O2 Saturation: 93 Height: 5 ft 7 in Weight: 341 lb 3.2 oz Body Mass Index: 53.4 BMI Classification: Morbidly Obese Impression and Plan 1. Obstructive Sleep Apnea-Hypopnea Syndrome, mild, with poor treatment compliance and good apnea control. On CPAP therapy, the patient has better sleep quality and is more rested overall. She says she is trying to keep the mask on but will find that it comes off without her remembering that she is taking it off and she is finding it on the floor. She is wondering if maybe a different style of mask, like a fullface, would feel more comfortable and she would leave it on for longer periods of time. I will add a mask refitting and do an update of her supply prescription since she is in need of supplies. We will follow-up with her in 1 to 2 months to recheck her compliance. She agreed to plan of care. Patient's apnea severity and rationale for treatment to reduce apnea, improve sleep quality and reduce cardiovascular and cerebrovascular events was reviewed. I also reviewed the benefit of consistent device use of CPAP for hypertension and diabetes. 2. Obesity, unspecified. Currently patients BMI is 53.4. Obesity increases the risk of apnea, CPAP pressure requirements and overall health risks especially cardiovascular and diabetes. Thus patient is advised to continue to try to lose weight. * Continue auto CPAP pressure at 5-15 cmH2O * Update supply prescription * Notify me if snoring with mask or feeling that the pressure is too much or too little * Attempt to lose weight * Call this office if any problems using CPAP * Return for follow up in 1-2 months, or sooner if concerns arise Counseling Topics: Weight loss health impact Prescriptions: Device supplies Follow up with Sleep Care in: 1-2 months Visit Type: In Office Time Spent with Patient (minutes): 26 Provider Statement: I spent 100% of the Face to Face Visit with the patient with greater than 50% spent counseling the patient and coordination of care.
[2023-12-17 11:35] VITALS: BP 114/72; O2SAT 93
== END 2023-12-17 10:38 | disposition home or self-care (01) ==
LOC: SC 10:37
PROVIDERS: ATTEND Nurse Practitioner Family
DX: G47.33 Obstructive sleep apnea (adult) (pediatric) (principal)
CPT/HCPCS: 99212; 99213

== ENCOUNTER 2023-12-20 10:29 | Outpatient (CLI) | payer MEDICAID | END 2023-12-20 10:30 | disposition home or self-care (01) | LOC: NS 10:29 | PROVIDERS: ATTEND Registered Nurse | DX: Z71.3 Dietary counseling and surveillance (principal); E66.01 Morbid (severe) obesity due to excess calories; Z68.43 Body mass index [BMI] 50.0-59.9, adult | CPT/HCPCS: 97803 ==

== ENCOUNTER 2023-12-30 08:39 | Outpatient (CLI) | payer MEDICAID ==
[2023-12-30 08:57] LABS: BASOPHILS # (AUTO) 0.1 10^3/uL (0.0-0.1); BASOPHILS % (AUTO) 0.7 %; EOSINOPHILS # (AUTO) 0.2 10^3/uL (0.0-0.7); EOSINOPHILS % (AUTO) 2.6 %; HCT - HEMATOCRIT 40.5 % (37.0-47.0); HGB - HEMOGLOBIN 13.3 g/dL (12.0-16.0); LYMPHOCYTES # (AUTO) 1.7 10^3/uL (1.5-3.5); LYMPHOCYTES % (AUTO) 23.6 %; MEAN CORPUSCULAR HEMOGLOBIN 31.5 pg (27.0-31.0); MEAN CORPUSCULAR HGB CONC 32.8 g/dL (32.0-36.0); MEAN PLATELET VOLUME 9.4 fL (7.9-10.8); MONOCYTES # (AUTO) 0.5 10^3/uL (0.0-1.0); MONOCYTES % (AUTO) 6.3 %; NEUTROPHILS # (AUTO) 4.8 10^3/uL (1.5-6.6); NEUTROPHILS % (AUTO) 66.7 %; PLT - PLATELET COUNT 225 10^3/uL (130-450); RED BLOOD COUNT 4.22 10^6/uL (4.20-5.40); RED CELL DISTRIBUTION WIDTH 13.3 % (12.0-15.0); WHITE BLOOD COUNT 7.3 x10^3/uL (4.8-10.8)
[2023-12-30 09:16] LABS: ALBUMIN 4.4 g/dL (3.2-5.5); ALBUMIN/GLOBULIN RATIO 1.4 (1.0-2.2); ALKALINE PHOSPHATASE 82 IU/L (42-121); ALT ALANINE AMINOTRANSFERASE 27 IU/L (10-60); AST ASPARTATE AMINOTRANSFERASE 18 IU/L (10-42); BILIRUBIN,TOTAL 0.6 mg/dL (0.2-1.0); BUN - BLOOD UREA NITROGEN 14 mg/dL (6-20); CALCIUM 9.8 mg/dL (8.5-10.3); CARBON DIOXIDE - CO2 31 mmol/L (21-32); CHLORIDE 100 mmol/L (101-111); CHOL/HDL RATIO 3.5 (<4.4); CHOLESTEROL 149 mg/dL; CREATININE 0.9 mg/dL (0.6-1.3); GFR - MDRD 69 (>89); GLUCOSE 106 mg/dL (74-104); HDL CHOLESTEROL 42 mg/dL; LDL CHOLESTEROL,CALCULATED 54 mg/dL; LDL/HDL RATIO 1.3 (<4.4); POTASSIUM 4.4 mmol/L (3.5-4.5); SODIUM 137 mmol/L (135-145); TOTAL PROTEIN 7.5 g/dL (6.4-8.9); TRIGLYCERIDES 266 mg/dL (48-352); VLDL CHOLESTEROL 53 mg/dL
[2023-12-30 09:28] LABS: THYROID STIMULATING HORMONE 1.81 uIU/mL (0.34-5.60)
== END 2023-12-30 08:40 | disposition home or self-care (01) ==
LOC: LAB 08:39
PROVIDERS: ATTEND Registered Nurse
DX: E63.9 Nutritional deficiency, unspecified (principal); Z13.220 Encounter for screening for lipoid disorders; Z13.29 Encounter for screening for other suspected endocrine disorder; Z13.0 Encounter for screening for diseases of the blood and blood-forming organs and certain disorders involving the immune mechanism
CPT/HCPCS: 36415; 80053; 80061; 82306; 83721; 84443; 85025

== ENCOUNTER 2024-01-02 11:40 | Outpatient (CLI) | payer MEDICAID | END 2024-01-02 11:41 | disposition home or self-care (01) | LOC: NS 11:40 | PROVIDERS: ATTEND Registered Nurse | DX: Z71.3 Dietary counseling and surveillance (principal); E66.01 Morbid (severe) obesity due to excess calories; Z68.43 Body mass index [BMI] 50.0-59.9, adult | CPT/HCPCS: 97803 ==

== ENCOUNTER 2024-02-07 10:29 | Outpatient (CLI) | payer MEDICAID | END 2024-02-07 10:30 | disposition home or self-care (01) | LOC: NS 10:29 | PROVIDERS: ATTEND Registered Nurse | DX: Z71.3 Dietary counseling and surveillance (principal); E66.01 Morbid (severe) obesity due to excess calories; Z68.43 Body mass index [BMI] 50.0-59.9, adult | CPT/HCPCS: 97803 ==

== ENCOUNTER 2024-02-21 10:29 | Outpatient (CLI) | payer MEDICAID | END 2024-02-21 10:30 | disposition home or self-care (01) | LOC: NS 10:29 | PROVIDERS: ATTEND Registered Nurse | DX: Z71.3 Dietary counseling and surveillance (principal); E66.01 Morbid (severe) obesity due to excess calories; Z68.43 Body mass index [BMI] 50.0-59.9, adult | CPT/HCPCS: 97803 ==

== ENCOUNTER 2024-02-21 10:57 | Outpatient (CLI) | payer MEDICAID ==
[2024-02-21 11:19] LABS: CALCIUM 10.5 mg/dL (8.5-10.3); POTASSIUM 4.1 mmol/L (3.5-4.5)
[2024-02-21 12:57] LABS: ESTIMATED AVERAGE GLUCOSE 108 mg/dL (70-100); HEMOGLOBIN A1c% 5.4 % (4.27-6.07)
== END 2024-02-21 10:58 | disposition home or self-care (01) ==
LOC: LAB 10:57
PROVIDERS: ATTEND Registered Nurse
DX: E11.9 Type 2 diabetes mellitus without complications (principal)
CPT/HCPCS: 36415; 80048; 83036

== ENCOUNTER 2024-02-26 10:45 | Outpatient (CLI) | payer MEDICAID ==
--- NOTE | 2024-02-26 11:32 | Sleep Patient Instructions ---
Sleep Center Visit Summary - Patient Visit Information Reason for Visit: 2-month follow-up - Patient Instructions Additional Instructions: You were here for follow up of CPAP therapy. You will be continued on CPAP therapy with pressure at 5-15 cmH2O. You should follow up with sleep care in 3 months. You may contact us sooner for any questions or concerns. - Clinic Information Contact: [facility] [address] [place] [address] [email or web address] T: [phone]
--- NOTE | 2024-02-26 12:47 | SLEEP CARE CONSULTATION ---
Information from patient questionnaire entered by Priya Guthrie. I have reviewed and concur with the information entered by Priya Guthrie. This document represents the service I personally performed and the decisions made by me, Halina Matson ARNP. 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 Sleep Study - Results Prior sleep studies: Yes Year and Where: [facility] 2yrs ago CPAP Compliance Data - Data Reviewed with Patient Current pressure setting (cmH2O): 5-15 Compliance data discussion: She did bring in her SD card, but we were unable to obtain her data. He significant other will being the machine by later so we can get her data. Subjective Patient concerns: reports: other (having trouble keeping mask on). denies: aerophagia, mask discomfort, air blowing in eyes, mask leak noise, condensation in mask/hose, nasal congestion, dry mouth, nose, throat, epistaxis Observed to snore while using device: No Current pressure setting perceived as: comfortable On therapy, patient: reports: other (not feeling difference yet because takes off at 3 hours). denies: drowsiness while driving Initial [place] Sleepiness Scale score: 7 (06/25/23) Current [place] Sleepiness Scale score: 6 (02/26/24) Allergies and Home Medications Known drug allergies: No Drug allergies reviewed: Yes Home medication list reviewed: Yes (no changes) Allergy and home medication list: Allergies No Known Drug Allergies Allergy (Verified 02/24/24 09:54) Review of Systems Review of systems same as previous: Yes (NO CHANGE) Physical Exam Vital signs obtained and entered by: PRIYA Ryder MA Blood Pressure: 103/76 (LEFT ARM) Cuff size: long Heart Rate: 73 O2 Saturation: 98 Height: 5 ft 7 in Weight: 339 lb 6.4 oz Body Mass Index: 53.1 BMI Classification: Morbidly Obese Impression and Plan 1. Obstructive Sleep Apnea-Hypopnea Syndrome, mild, with unknown treatment compliance and unknown apnea control. She had a week that she was able to keep mask on for over 3 hours but mostly she is taking it off after 3 hours. She would like to try a different mask that was not as easy to take off. I fitted her to the Lyudmila DreamWisp, medium cushion, with good fit and she thinks that she will be able to keep this on. I will have her follow-up in 1 to 2 months so we can recheck compliance and help her if needed with another mask. Patient's apnea severity and rationale for treatment to reduce apnea, improve sleep quality and reduce cardiovascular and cerebrovascular events was reviewed. I also reviewed the benefit of consistent device use of CPAP for hypertension, diabetes. 2. Obesity, unspecified. Currently patients BMI is 53.1. Obesity increases the risk of apnea, CPAP pressure requirements and overall health risks especially cardiovascular and diabetes. Thus patient is advised to lose weight. * Continue auto CPAP pressure at 5-15 cmH2O * Fit and sent home with DreamWisp medium cushion nasal cushion mask * Notify me if snoring with mask or feeling that the pressure is too much or too little * Attempt to lose weight * Call this office if any problems using CPAP * Return for follow up in 3 months, or sooner if concerns arise Counseling Topics: Spare mask, Weight loss health impact Follow up with Sleep Care in: 1-2 months Visit Type: In Office Time Spent with Patient (minutes): 21 Provider Statement: I spent 100% of the Face to Face Visit with the patient with greater than 50% spent counseling the patient and coordination of care.
[2024-02-26 13:03] VITALS: BP 103/76; O2SAT 98
== END 2024-02-26 10:46 | disposition home or self-care (01) ==
LOC: SC 10:45
PROVIDERS: ATTEND Nurse Practitioner Family
DX: G47.33 Obstructive sleep apnea (adult) (pediatric) (principal); E66.9 Obesity, unspecified; Z68.43 Body mass index [BMI] 50.0-59.9, adult
CPT/HCPCS: 99212; 99213

== ENCOUNTER 2024-03-13 11:18 | Outpatient (CLI) | payer MEDICAID | END 2024-03-13 11:19 | disposition home or self-care (01) | LOC: NS 11:18 | PROVIDERS: ATTEND Registered Nurse | DX: Z71.3 Dietary counseling and surveillance (principal); E66.01 Morbid (severe) obesity due to excess calories; Z68.43 Body mass index [BMI] 50.0-59.9, adult | CPT/HCPCS: 97803 ==

== ENCOUNTER 2024-03-30 13:03 | Outpatient (CLI) | payer MEDICAID ==
--- NOTE | 2024-03-31 10:24 | Mammography Report ---
BILATERAL DIGITAL SCREENING MAMMOGRAM 3D/2D WITH EXAGGERATED CC: 03/30/2024 CLINICAL: Baseline exam. Routine screening. No prior exams were available for comparison. Both breasts are almost entirely fatty (category a/<25% glandular tissue). No significant masses, calcifications, or other findings are seen in either breast. IMPRESSION: NEGATIVE There is no mammographic evidence of malignancy. A 1 year screening mammogram is recommended. Based on the Tyrer Cuzick model (a risk assessment model) the patient's lifetime risk is 7.1% and her 10 year risk is 1.0%. According to the ACR, ACS, and NCCN guidelines, an annual breast MRI exam tony g with mammogram is recommended if the patient's lifetime risk is 20% or greater. This exam was interpreted at Station ID: [id number]. NOTE: For mammograms, a report in lay terms will be sent to the patient. Approximately 15% of breast malignancies will not be visualized mammographically. In the management of a palpable breast mass, a negative mammogram must not discourage biopsy of a clinically suspicious lesion. Electronically Signed By: Kristin edwards/leoncio:03/30/2024 16:37:32 letter sent: No_Letter ACR BI-RADS Category 1: Negative 3341F PARENCHYMAL PATTERN: (F) - The breast(s) demonstrate(s) diffuse fatty replacement. BI-RADS CATEGORY: (1) - 1 RECOMMENDATION: (ANNUAL) - Recommend routine annual screening mammography. [id number] 1 year screening LATERALITY: (B)
== END 2024-03-30 13:04 | disposition home or self-care (01) ==
LOC: DI 13:03
PROVIDERS: ATTEND Registered Nurse
DX: Z12.31 Encounter for screening mammogram for malignant neoplasm of breast (principal)

== ENCOUNTER 2024-04-02 10:28 | Outpatient (CLI) | payer MEDICAID | END 2024-04-02 10:29 | disposition home or self-care (01) | LOC: NS 10:28 | PROVIDERS: ATTEND Registered Nurse | DX: Z71.3 Dietary counseling and surveillance (principal); E66.01 Morbid (severe) obesity due to excess calories; Z68.43 Body mass index [BMI] 50.0-59.9, adult | CPT/HCPCS: 97803 ==

== ENCOUNTER 2024-04-15 10:32 | Outpatient (CLI) | payer MEDICAID | END 2024-04-15 10:33 | disposition home or self-care (01) | LOC: NS 10:32 | PROVIDERS: ATTEND Registered Nurse | DX: Z71.3 Dietary counseling and surveillance (principal); E66.01 Morbid (severe) obesity due to excess calories | CPT/HCPCS: 97803 ==

== ENCOUNTER 2024-05-05 07:00 | Outpatient (CLI) | payer MEDICAID ==
[2024-05-05 23:22] LABS: BACTERIAL VAGINOSIS DNA POSITIVE (NEGATIVE); CANDIDA GLABRATA DNA NEGATIVE (NEGATIVE); CANDIDA GROUP DNA NEGATIVE (NEGATIVE); CANDIDA KRUSEI DNA NEGATIVE (NEGATIVE); TRICHOMONAS VAGINALIS DNA NEGATIVE (NEGATIVE)
== END 2024-05-05 23:59 | disposition home or self-care (01) ==
LOC: LAB.S 07:00
PROVIDERS: ATTEND Registered Nurse
DX: R87.619 Unspecified abnormal cytological findings in specimens from cervix uteri (principal)
CPT/HCPCS: 81514

== ENCOUNTER 2024-07-08 09:02 | Outpatient (CLI) | payer MEDICAID ==
--- NOTE | 2024-07-08 09:48 | Sleep Patient Instructions ---
Sleep Center Visit Summary - Patient Visit Information Reason for Visit: 3-month follow-up - Patient Instructions Additional Instructions: You were here for follow up of CPAP therapy. You will be continued on CPAP therapy with pressure at 4-6 cmH2O. A mask refitting for a full face mask will be sent to [facility]. You have opted to try an oral mandibular appliance to control your sleep apnea. A list of certified dentists in the area was provided for you to find a dentist to have your oral appliance made. Once you have the device, please call and make a follow up appointment. We need to see you after you have been using the appliance for a month. We will evaluate your response to therapy and order a follow up sleep study to check efficiency of treatment. You should follow up with sleep care in 3 months. You may contact us sooner for any questions or concerns. - Clinic Information Contact: [facility] [address] [place] [address] [email or web address] T: [phone]
--- NOTE | 2024-07-08 09:55 | SLEEP CARE CONSULTATION ---
Information from patient questionnaire entered by Anisa Guthrie. I have reviewed and concur with the information entered by Anisa Guthrie. This document represents the service I personally performed and the decisions made by me, Halina Matson ARNP. 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 Sleep Study - Results Prior sleep studies: Yes Year and Where: [facility] 2yrs ago CPAP Compliance Data - Data Reviewed with Patient Average duration of nightly device use: 3.9 HRS Compliance rate %: 10 ( days used) Current pressure setting (cmH2O): 4-6 Average residual AHI: 0.2 Subjective Missed days of use due to: reports: illness, travel (camping and vacations), other (taking mask off while asleep) Patient concerns: denies: aerophagia, mask discomfort, air blowing in eyes, mask leak noise, condensation in mask/hose, nasal congestion, dry mouth, nose, throat, epistaxis Observed to snore while using device: No Current pressure setting perceived as: comfortable On therapy, patient: reports: other (not feeling improvement of sle ep/restfulness). denies: drowsiness while driving Initial [place] Sleepiness Scale score: 7 (06/25/23) Current [place] Sleepiness Scale score: 7 (07/08/24) Allergies and Home Medications Known drug allergies: No Drug allergies reviewed: Yes Home medication list reviewed: Yes (no changes) Allergy and home medication list: Allergies No Known Drug Allergies Allergy (Verified 07/08/24 09:08) Review of Systems Review of systems same as previous: Yes (NO CHANGE) Physical Exam Vital signs obtained and entered by: ANISA Ryder MA Blood Pressure: 139/95 (RIGHT ARM) Cuff size: long Heart Rate: 80 O2 Saturation: 95 Height: 5 ft 7 in Weight: 341 lb 3.2 oz Body Mass Index: 53.4 BMI Classification: Morbidly Obese Impression and Plan 1. Obstructive Sleep Apnea-Hypopnea Syndrome, mild, with poor treatment compliance and good apnea control. She tries to leave mask on her face but will take it off when asleep before she gets to 4 hours. She thinks changing to a full face mask may help her keep the mask on and I will sent an order for a mask refitting to [facility]. After some discussion about therapy options, she would like to change to oral appliance if her insurance will cover it. I will write order for the oral appliance and she will check with her insurance to see if they will cover this device. She will come back in about 3 months to review compliance for CPAP or with the oral appliance. Patient's apnea severity and rationale for treatment to reduce apnea, improve sleep quality and reduce car diovascular and cerebrovascular events was reviewed. I also reviewed the benefit of consistent device use of CPAP for hypertension, diabetes. 2. Obesity, unspecified. Currently patients BMI is 53.4. Obesity increases the risk of apnea, CPAP pressure requirements and overall health risks especially cardiovascular and diabetes. Thus patient is advised to lose weight. * Continue auto CPAP pressure at 4-6 cmH2O * Mask refitting for full face mask * Oral appliance * Notify me if snoring with mask or feeling that the pressure is too much or too little * Attempt to lose weight * Call this office if any problems using CPAP * Return for follow up in 3 months, or sooner if concerns arise Counseling Topics: Weight loss health impact Prescriptions: Other (mask refitting and oral appliance) Follow up with Sleep Care in: 3 months Visit Type: In Office Time Spent with Patient (minutes): 29 Provider Statement: I spent 100% of the Face to Face Visit with the patient with greater than 50% spent counseling the patient and coordination of care.
[2024-07-08 09:56] VITALS: BP 139/95; O2SAT 95
== END 2024-07-08 09:03 | disposition home or self-care (01) ==
LOC: SC 09:02
PROVIDERS: ATTEND Nurse Practitioner Family
DX: G47.33 Obstructive sleep apnea (adult) (pediatric) (principal); E66.01 Morbid (severe) obesity due to excess calories; Z68.43 Body mass index [BMI] 50.0-59.9, adult
CPT/HCPCS: 99212; 99213